=== PATIENT | male | born 1985 | race Caucasian/White ===

== ENCOUNTER 2020-04-24 14:53 | Outpatient (REF) | payer OTHER, SELFPAY | END 2020-04-24 14:54 | disposition home or self-care (01) | LOC: HO.HOSX 14:53 | PROVIDERS: Visit Provider Orthopaedic Surgery | DX: Z13.89 Encounter for screening for other disorder (principal) ==

== ENCOUNTER 2020-04-25 08:53 | Outpatient (REF) | payer BC, SELFPAY ==
--- NOTE | ~2020-04-25 | XR_ITS ---
EXAMINATION: XR KNEE CLINICAL INFORMATION: Right knee pain. COMPARISON: Previous x-rays, most recent November 2012. TECHNIQUE: Standing AP view of both knees and lateral and sunrise view of the right knee. FINDINGS: Right knee: Bone alignment is normal. No fracture or dislocation is seen. There are new lucencies in the distal femur and proximal tibia, probably representing postsurgical changes from ACL repair. The joint spaces are normal. There is no joint effusion. Standing AP view of the left knee is unremarkable. XR/XR knee RT 2V IMPRESSION: RIGHT KNEE: Postsurgical changes. Otherwise unremarkable exam. LEFT KNEE: Unremarkable left knee.
--- NOTE | ~2020-04-25 | XR_ITS ---
EXAMINATION: XR KNEE CLINICAL INFORMATION: Right knee pain. COMPARISON: Previous x-rays, most recent November 2012. TECHNIQUE: Standing AP view of both knees and lateral and sunrise view of the right knee. FINDINGS: Right knee: Bone alignment is normal. No fracture or dislocation is seen. There are new lucencies in the distal femur and proximal tibia, probably representing postsurgical changes from ACL repair. The joint spaces are normal. There is no joint effusion. Standing AP view of the left knee is unremarkable. XR/XR knee standing BI IMPRESSION: RIGHT KNEE: Postsurgical changes. Otherwise unremarkable exam. LEFT KNEE: Unremarkable left knee.
== END 2020-04-25 08:54 | disposition home or self-care (01) ==
LOC: HO.HOSX 08:53
PROVIDERS: PCP Internal Medicine; Visit Provider Orthopaedic Surgery
DX: M25.561 Pain in right knee (principal); M25.562 Pain in left knee
CPT/HCPCS: 73560; 73565

== ENCOUNTER → 2020-08-17 10:33 | Outpatient (BNVA) | payer BC, SELFPAY | PROVIDERS: Visit Provider Orthopaedic Surgery | DX: M25.561 Pain in right knee (principal) | CPT/HCPCS: 20610; J1040 ==